=== PATIENT | female | born 2000 | race African-American/Black ===

== ENCOUNTER 2020-06-24 14:04 | Emergency (ER) | payer MEDICARE, MEDICAID ==
[~2020-06-24 14:04] MED LIST: FLAGYL500 M1 PO; HYDROXYZINE HCL25 M2 PO
[2020-06-24 14:14] VITALS: BP 000/000
== END 2020-06-24 14:15 | disposition left against medical advice (07) ==
LOC: M.ERS 14:04
DX: Z53.21 Procedure and treatment not carried out due to patient leaving prior to being seen by health care provider (principal)